=== PATIENT | female | born 1955 | race Caucasian/White ===

== ENCOUNTER → 2016-11-04 | Day surgery (SDC) | payer OTHER ==
[~2016-11-04] MED LIST: KETOROLAC TROMETHAMINE 30 MG/ML (IVP) VIAL IV PUSH ONE; LACTATED RINGER'S 1000 ML INJ 1,000 ML ONE; MIDAZOLAM HCL 2 MG/2 ML VIAL ONE; ONDANSETRON HCL 4 MG/2 ML VIAL IV PUSH ONE; PROPOFOL 200 MG/20 ML AMP IV ONE; ceFAZolin 1 GM ADDVANTAGE VIAL IV ONE; ceFAZolin INJ 1,000 MG VIAL ONE
--- NOTE | 2016-11-07 08:18 | MP ---
cc: NILESH DAVIS M.D. DATE OF SURGERY: 11/03/2016 PREOPERATIVE DIAGNOSIS 1. Right elbow lateral epicondylitis with high-grade partial thickness tear of the common extensor tendon. 2. Right elbow lateral collateral ligament tear. POSTOPERATIVE DIAGNOSIS 1. Right elbow lateral epicondylitis with high-grade partial thickness tear of the common extensor tendon. 2. Right elbow lateral collateral ligament tear. SURGEON Dr. Nilesh Davis. FIELD RESEARCH ASSOCIATE KHADIJAH Hagen PROCEDURE 1. Right elbow debridement of common extensor tendon with repair. 2. Right elbow repair of lateral collateral ligament. ANESTHESIA General anesthesia. TOURNIQUET TIME 12 minutes at 250 mmHg pressure. PROCEDURE The patient was brought back to operative theater. General anesthesia was administered. The right upper extremity was prepped and draped in usual sterile fashion. She received intravenous Ancef. We gave injection on the lateral aspect of the elbow with 0.25% Marcaine with epinephrine. The arm was exsanguinated. Tourniquet was raised. We made a standard incision laterally. We identified that there was a large bone spur laterally. We incised through the common extensor tendon, found that the superficial surface was intact but then we identified high-grade partial-thickness tearing underneath with significant tendinosis. As we made further incision longitudinally we discovered that there was tearing of the lateral collateral ligament with adherence to the underlying capsule. We ended up incising through the capsule layer as this was adherent and there was a small to moderate joint effusion of viscus clear yellow fluid. This was irrigated. We identified that the lateral epicondylar attachment for the LCL and the common extensor tendon was roughened with some granulation tissue. We then used a rongeur to remove the bone spur laterally and then smoothed this down with a rasp. We then irrigated off the bone. Note that the visualized cartilage of the capitellum was unremarkable. We then proceeded on with repair, placing an Arthrex bio-composite suture tack which had two individual zero fiber wires attached. We drilled at the lateral epicondyle, placed the tack, made sure it was secure and then used each of these zero fiber wires to move forward first with repair of the lateral collateral ligament and this was done with [id number] fashion and then we ran the suture distally in [id number] fashion and tying off knots as we went down to leave knot more distally and then we used a FiberWire to repair the common extensor tendon, again making sure that the knot at this time was exiting more proximally so to reduce irritation. The tourniquet was released. Hemostasis was achieved. We closed a deep fascial layer using 2-0 Vicryl on top of this and then we closed skin with 2-0 Vicryl followed by dura nylon. Arm was dressed and placed into a posterior splint. Postoperative plan is follow standard repair protocol. MD REJI Grewal/BRIAN /1:46 PM /7:59 AM
== END | disposition home or self-care (01) ==
LOC: ESDC 10:47
PROVIDERS: ATTEND Orthopaedic Surgery
DX: M77.11 Lateral epicondylitis, right elbow (principal); S53.431A Radial collateral ligament sprain of right elbow, initial encounter
CPT/HCPCS: 01712; 01740; 24343; 24358; C1713; J0690; J1885; J2250; J2405; J3010; J7120